=== PATIENT | female | born 1995 | race Caucasian/White ===

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

== ENCOUNTER 2017-08-26 00:32 | Inpatient (IN) | payer MEDICAID ==
--- NOTE | 2017-08-26 08:24 | PCM.LDHP ---
L&D History of Present Illness - General Date of Service: 08/26/17 Admit Problem/Dx: Admission Diagnosis/Problem Admission Diagnosis/Problem - History of Present Illness Introduction:: 22 year old at 39w admitted for induction of labor. 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 Other Musculoskeletal Surgeries/Procedures:: rhinoplasty Social & Family History - Tobacco Use Smoking Status *Q: Current Every Day Smoker Years of Tobacco use: 3 Packs/Tins Daily: 0.5 - Caffeine Use Caffeine Use: Reports: Coffee, Energy Drinks, Soda, Tea Caffeine Use Comment: occassionally drinks these - Alcohol Use Days Per Week of Alcohol Use: 0 - Recreational Drug Use Recreational Drug Use: No H&P Review of Systems - Review of Systems: Review Of Systems: See Below General: Reports: No Symptoms HEENT: Reports: No Symptoms Pulmonary: Reports: No Symptoms Cardiovascular: Reports: No Symptoms Gastrointestinal: Reports: No Symptoms Genitourinary: Reports: No Symptoms Musculoskeletal: Reports: No Symptoms Skin: Reports: No Symptoms Psychiatric: Reports: No Symptoms Neurological: Reports: No Symptoms Hematologic/Lymphatic: Reports: No Symptoms Immunologic: Reports: No Symptoms L&D Exam - Exam Exam: See Below - OB Specific Contraction Intensity: Mild to Moderate Movement: Active Heart Tones: Present Heart Tones per Min: 140 Presentation: Vertex - Musa Score Musa Score Cervix Position: Anterior Musa Score Consistency: Soft Musa Score Effacement: 51-70% Musa Score Dilation: 3-4 cm Musa Score 's Station: -2 Musa Score Total: 9 - Exam General: Alert, Oriented HEENT: PERRLA, Conjunctiva Clear, EACs Clear, EOMI, Hearing Intact, Mucosa Moist & [place], Nares Patent, Normal Nasal Septum, Posterior Pharynx Clear, TMs Clear Neck: Supple, Trachea Midline Lungs: Clear to Auscultation, Normal Respiratory Effort Cardiovascular: Regular Rate, Regular Rhythm GI/Abdominal Exam: Normal Bowel Sounds, Soft, Non-Tender, No Organomegaly, No Distention, No Abnormal Bruit, No Mass, Pelvis Stable Genitourinary: Normal external exam, Normal bimanual exam, Normal speculum exam Back Exam: Normal Inspection, Full Range of Motion Extremities: Normal Inspection, Normal Range of Motion, Non-Tender, No Pedal Edema, Normal Capillary Refill Skin: Warm, Dry, Intact Neurological: Cranial Nerves Intact, Reflexes Equal Bilateral Psychiatric: Alert, Normal Affect, Normal Mood Problem List Initiated/Reviewed/Updated: Yes Assessment/Plan Comment:: Term labor. Pitocin. Regular diet. AROM when possible.
[2017-08-26] MEDS ORDERED: Sodium Chloride 0.9% 10 ML Syringe FLUSH PRN (08:26)
[2017-08-26] MEDS ORDERED: Ampicillin 2 GM in Sodium Chloride 0.9% 100 ML IV ONE (08:28)
[2017-08-26] MEDS ORDERED: Lactated Ringers 1,000 ML IV SCH (08:30)
[2017-08-26] MEDS: Lactated Ringers 1,000 ML IV SCH ×4 (08:46→16:42)
[2017-08-26] MEDS ORDERED: Oxytocin/Lactated Ringers 10 UNIT/1,000 ML BAG IV SCH ×2 (09:00)
[2017-08-26] MEDS ORDERED: Pneumococcal Polyvalent-23 Vaccine 0.5 ML SDV IM ONE (09:16)
[2017-08-26] MEDS ORDERED: Ondansetron 4 MG/2 ML SDV IVPUSH PRN (12:25)
[2017-08-26] MEDS ORDERED: ePHEDrine 50 MG/ML SDV IVPUSH PRN (12:25)
--- NOTE | 2017-08-26 12:29 | PCM.PREANE ---
Preanesthetic Assessment - Anesthesia/Transfusion/Family Hx Anesthesia History: Prior Anesthesia Without Reaction Family History of Anesthesia Reaction: Yes (succhylcholine reaction per family member) Transfusion History: No Prior Transfusion(s) Other Type of Transfusion Reaction: family history of reaction with succinocholine Intubation History: Unknown - Review of Systems General: No Symptoms Pulmonary: No Symptoms (smoker: 1/2 pack per day times 3 years) Cardiovascular: No Symptoms Gastrointestinal: No Symptoms, Constipation Neurological: No Symptoms Other: Reports: None - Physical Assessment NPO Status Date: 08/26/17 NPO Status Time: 10:00 Pulse: 83 O2 Sat by Pulse Oximetry: 100 Respiratory Rate: 20 Blood Pressure: 118/63 Temperature: 36.3 C Vital Signs: Last Vital Signs Temp 36.3 C 08/26/17 08:28 Pulse 83 08/26/17 08:28 Resp 20 08/26/17 08:28 BP 118/63 08/26/17 08:28 Pulse Ox 100 08/26/17 08:28 Height: 1.63 m Weight: 108.862 kg ASA Class: 2 Mental Status: Alert & Oriented x3 Airway Class: Mallampati = 2 Dentition: Reports: Normal Dentition, Caries Thyro-Mental Finger Breadths: 3 Mouth Opening Finger Breadths: 3 ROM/Head Extension: Full Lungs: Clear to Auscultation, Normal Respiratory Effort Cardiovascular: Regular Rate, Regular Rhythm, No Murmurs - Lab Values: Laboratory Last Values WBC 9.17 K/mm3 (3.98-10.04) 08/26/17 10:37 RBC 3.85 M/mm3 (3.98-5.22) L 08/26/17 10:37 Hgb 11.5 gm/L (11.2-15.7) 08/26/17 10:37 Hct 35.0 % (34.1-44.9) 08/26/17 10:37 MCV 90.9 fl (79.4-94.8) 08/26/17 10:37 MCH 29.9 pg (25.6-32.2) 08/26/17 10:37 MCHC 32.9 g/dl (32.2-35.5) 08/26/17 10:37 RDW Std Deviation 46.6 fL (36.4-46.3) H 08/26/17 10:37 Plt Count 201 K/mm3 (182-369) 08/26/17 10:37 MPV 10.2 fl (9.4-12.3) 08/26/17 10:37 Neut % (Auto) 70.3 % (34.0-71.1) 08/26/17 10:37 Lymph % (Auto) 21.7 % (19.3-51.7) 08/26/17 10:37 [place] % (Auto) 5.9 % (4.7-12.5) 08/26/17 10:37 Eos % (Auto) 0.8 (0.7-5.8) 08/26/17 10:37 Baso % (Auto) 0.1 % (0.1-1.2) 08/26/17 10:37 Neut # (Auto) 6.45 K/mm3 (1.56-6.13) H 08/26/17 10:37 Lymph # (Auto) 1.99 K/mm3 (1.18-3.74) 08/26/17 10:37 [place] # (Auto) 0.54 K/mm3 (0.24-0.36) H 08/26/17 10:37 Eos # (Auto) 0.07 K/mm3 (0.04-0.36) 08/26/17 10:37 Baso # (Auto) 0.01 K/mm3 (0.01-0.08) 08/26/17 10:37 Manual Slide Review Abnormal smear 08/26/17 10:37 Above labs reviewed and noted. 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 Other Musculoskeletal Surgeries/Procedures:: rhinoplasty - SUBSTANCE USE Smoking Status *Q: Current Every Day Smoker Tobacco Use Within Last Twelve Months: Cigarettes Days Per Week of Alcohol Use: 0 Recreational Drug Use History: No - HOME MEDS Home Medications: Home Meds PNV95/Ferrous Fumarate/FA [ Tablet] 1 each PO DAILY 08/06/17 [History] - CURRENT (IN HOUSE) MEDS Current Meds: Current Medications Ephedrine Sulfate (Ephedrine Sulfate) 5 mg IVPUSH ASDIRECTED PRN PRN Reason: Hypotension Fentanyl (Sublimaze) 100 mcg EPIDUR Q3H PRN PRN Reason: Pain Fentanyl/Bupivacaine HCl (Fentanyl/Bupivacaine/Ns 2 Mcg-0.125% 100 Ml) 100 ml EPIDUR ASDIRECTED KENDALL Ampicillin Sodium 1 gm/ Sodium (Chloride) 100 mls @ 200 mls/hr IV Q4H KENDALL Lactated Ringer's (Ringers, Lactated) 1,000 mls @ 100 mls/hr IV ASDIRECTED KENDALL Last Admin: 08/26/17 08:46 Dose: 100 mls/hr Oxytocin/Lactated Ringer's (Pitocin In Lr 10 Units/1,000 Ml) 10 unit in 1,000 mls @ 12 mls/hr IV TITRATE KENDALL; 2 MUNITS/MIN PRN Reason: Protocol Last Titration: 08/26/17 11:16 Dose: 6 munits/min, 36 mls/hr Oxytocin/Lactated Ringer's (Pitocin In Lr 10 Units/1,000 Ml) 10 unit in 1,000 mls @ 500 mls/hr IV ASDIRECTED K[place]ALL PRN Reason: Protocol Ondansetron HCl (Zofran) 4 mg IVPUSH ONETIME PRN PRN Reason: Nausea/Vomiting Sodium Chloride (Saline Flush) 10 ml FLUSH ASDIRECTED PRN PRN Reason: Keep Vein Open Discontinued Medications Ampicillin Sodium 2 gm/ Sodium (Chloride) 100 mls @ 200 mls/hr IV ONETIME ONE Stop: 08/26/17 08:57 Last Admin: 08/26/17 08:42 Dose: 200 mls/hr Lactated Ringer's (Ringers, Lactated) 1,000 mls @ 100 mls/hr IV ASDIRECTED KENDALL Pneumococcal Polyvalent Vaccine (Pneumovax 23) 0.5 ml IM .ONCE ONE Stop: 08/26/17 09:17
[2017-08-26] MEDS: fentaNYL 100 MCG/2 ML SDV EPIDUR PRN ×2 (12:44→20:52)
[2017-08-26] MEDS: Bupivacaine/fentaNYL/NS 100 ML Bag EPIDUR SCH ×2 (12:44→20:37)
[2017-08-26] MEDS: Ampicillin 1 GM in Sodium Chloride 0.9% 100 ML IV SCH ×3 (13:30→20:20)
[2017-08-26] MEDS ORDERED: Acetaminophen 325 MG Tab PO PRN (20:06)
[2017-08-26] MEDS ORDERED: Bupivacaine 0.25% 10 ML SDV ONE (22:22)
--- NOTE | 2017-08-27 00:56 | PCM.PNLD ---
Labor Progress Note - VS & Meds Vital Signs: Last Vital Signs Temp 36.3 C 08/26/17 12:44 Pulse 83 08/26/17 12:44 Resp 20 08/26/17 12:44 BP 118/63 08/26/17 12:44 Pulse Ox 100 08/26/17 12:44 Active Medications: Current Medications Acetaminophen (Tylenol) 650 mg PO Q6H PRN PRN Reason: Pain Last Admin: 08/26/17 20:12 Dose: 650 mg Ephedrine Sulfate (Ephedrine Sulfate) 5 mg IVPUSH ASDIRECTED PRN PRN Reason: Hypotension Fentanyl (Sublimaze) 100 mcg EPIDUR Q3H PRN PRN Reason: Pain Last Admin: 08/26/17 20:52 Dose: 100 mcg Fentanyl/Bupivacaine HCl (Fentanyl/Bupivacaine/Ns 2 Mcg-0.125% 100 Ml) 100 ml EPIDUR ASDIRECTED KENDALL Last Admin: 08/26/17 20:37 Dose: 100 ml Ampicillin Sodium 1 gm/ Sodium (Chloride) 100 mls @ 200 mls/hr IV Q4H KENDALL Last Admin: 08/26/17 20:20 Dose: 200 mls/hr Lactated Ringer's (Ringers, Lactated) 1,000 mls @ 100 mls/hr IV ASDIRECTED KENDALL Last Admin: 08/26/17 16:42 Dose: 100 mls/hr Oxytocin/Lactated Ringer's (Pitocin In Lr 10 Units/1,000 Ml) 10 unit in 1,000 mls @ 12 mls/hr IV TITRATE KENDALL; 2 MUNITS/MIN PRN Reason: Protocol Last Titration: 08/26/17 21:26 Dose: 6 munits/min, 36 mls/hr Oxytocin/Lactated Ringer's (Pitocin In Lr 10 Units/1,000 Ml) 10 unit in 1,000 mls @ 500 mls/hr IV ASDIRECTED KENDALL PRN Reason: Protocol Ondansetron HCl (Zofran) 4 mg IVPUSH ONETIME PRN PRN Reason: Nausea/Vomiting Last Admin: 08/26/17 21:23 Dose: 4 mg Sodium Chloride (Saline Flush) 10 ml FLUSH ASDIRECTED PRN PRN Reason: Keep Vein Open Discontinued Medications Ampicillin Sodium 2 gm/ Sodium (Chloride) 100 mls @ 200 mls/hr IV ONETIME ONE Stop: 08/26/17 08:57 Last Admin: 08/26/17 08:42 Dose: 200 mls/hr Lactated Ringer's (Ringers, Lactated) 1,000 mls @ 100 mls/hr IV ASDIRECTED KENDALL Pneumococcal Polyvalent Vaccine (Pneumovax 23) 0.5 ml IM .ONCE ONE Stop: 08/26/17 09:17 - Uterine Contractions Uterine Monitoring Mode: External Daisy Contraction Intensity: Mild to Moderate - Monitoring Monitor Mode: External Ultrasound Heart Rate (FHR) Baseline: 140 Heart Rate (FHR) Variability: Moderate (6-25 bmp) Accelerations: Present, 15x15 Decelerations: None Strip Review: Category I - Vaginal Exam Dilation (cm): 4 Effacement (Percent): 90 Station: 0 Cervical Position: Midposition - Labor Progress (Free Text) Labor Progress: Good progress. AROM clear fluid.
[2017-08-27] MEDS ORDERED: Lanolin 100% Cream 7 GM Tube TOP PRN (02:24)
[2017-08-27] MEDS ORDERED: Benzocaine/Menthol 20%-0.5% Spray 56 GM Canister TOP PRN (02:24)
[2017-08-27] MEDS ORDERED: Docusate Sodium 100 MG Cap PO PRN (02:24)
[2017-08-27] MEDS: Lactated Ringers 1,000 ML IV SCH (03:56)
[2017-08-27] MEDS ORDERED: Witch Hazel Medicated Pads 100/Jar TOP PRN (03:58)
[2017-08-27] MEDS: Ampicillin 1 GM in Sodium Chloride 0.9% 100 ML IV SCH (08:16)
[2017-08-27] MEDS: Ibuprofen 600 MG Tab PO PRN ×3 (10:26→23:31)
[2017-08-27] MEDS ORDERED: Pneumococcal Polyvalent-23 Vaccine 0.5 ML SDV IM ONE (11:31)
[2017-08-27] MEDS ORDERED: Acetaminophen 325 MG Tab PO PRN (13:58)
--- NOTE | 2017-08-27 17:27 | PCM48HPAN ---
Post Anesthesia Note - EVALUATION WITHIN 48HRS OF ANESTHETIC Vital Signs in Normal Range: Yes Patient Participated in Evaluation: Yes Respiratory Function Stable: Yes Airway Patent: Yes Cardiovascular Function Stable: Yes Hydration Status Stable: Yes Pain Control Satisfactory: Yes Nausea and Vomiting Control Satisfactory: Yes Mental Status Recovered: Yes
[2017-08-28] MEDS: Ibuprofen 600 MG Tab PO PRN (07:36)
[2017-08-28 09:50] VITALS: BP 125/79
--- NOTE | 2017-08-28 09:53 | PCM.DCSUM1 ---
Discharge Summary - Hospital Course Brief History: Admitted for induction. Uncomplicated labor, delivery and course. - Discharge Data Discharge Date: 08/28/17 Discharge Disposition: Home, Self-Care 01 Condition: Good - Patient Instructions Diet: Usual Diet as Tolerated Activity: No Strenuous Activities Activity, Other: pelvic rest Driving: May Drive Today Notify Provider of: Fever, Increased Pain, Swelling and Redness, Drainage, Nausea and/or Vomiting - Discharge Plan Home Medications: Home Meds PNV95/Ferrous Fumarate/FA [ Tablet] 1 each PO DAILY 08/06/17 [History] Ibuprofen [IJD: Ibuprofen] 600 mg PO Q6H PRN tablet 08/28/17 [Rx] Patient Handouts: Home Care Instructions for Mom Referrals: Ethel Ahmadi MD [Primary Care Provider] - - Discharge Summary/Plan Comment DC Time >30 min.: No - General Info Date of Service: 08/28/17 Functional Status: Reports: Pain Controlled - Review of Systems General: Reports: No Symptoms HEENT: Reports: No Symptoms Pulmonary: Reports: No Symptoms Cardiovascular: Reports: No Symptoms Gastrointestinal: Reports: No Symptoms Genitourinary: Reports: No Symptoms Musculoskeletal: Reports: No Symptoms Skin: Reports: No Symptoms Neurological: Reports: No Symptoms Psychiatric: Reports: No Symptoms - Patient Data Vitals - Most Recent: Last Vital Signs Temp 36.7 C 08/28/17 04:17 Pulse 81 08/28/17 09:46 Resp 14 08/28/17 09:46 BP 125/79 08/28/17 09:46 Pulse Ox 99 08/28/17 09:46 Weight - Most Recent: 108.862 kg Med Orders - Current: Current Medications Acetaminophen (Tylenol) 650 mg PO Q6H PRN PRN Reason: Pain Last Admin: 08/27/17 14:07 Dose: 650 mg Benzocaine/Menthol (Dermoplast Pain Relief [place]) 0 gm TOP ASDIRECTED PRN PRN Reason: Perineal Comfort Measure Last Admin: 08/27/17 02:40 Dose: 1 can Docusate Sodium (Colace) 100 mg PO BID PRN PRN Reason: Constipation Emollient Ointment (Lansinoh Hpa) 0 gm TOP ASDIRECTED PRN PRN Reason: Sore Nipples Last Admin: 08/27/17 02:54 Dose: 1 tube Ibuprofen (Motrin) 600 mg PO Q6H PRN PRN Reason: Mild pain or fever Last Admin: 08/28/17 07:36 Dose: 600 mg [place] (Tucks) 1 pad TOP ASDIRECTED PRN PRN Reason: Perineal Comfort Measure Discontinued Medications Acetaminophen (Tylenol) 650 mg PO Q6H PRN PRN Reason: Pain Last Admin: 08/26/17 20:12 Dose: 650 mg Ephedrine Sulfate (Ephedrine Sulfate) 5 mg IVPUSH ASDIRECTED PRN PRN Reason: Hypotension Fentanyl (Sublimaze) 100 mcg EPIDUR Q3H PRN PRN Reason: Pain Last Admin: 08/26/17 20:52 Dose: 100 mcg Fentanyl/Bupivacaine HCl (Fentanyl/Bupivacaine/Ns 2 Mcg-0.125% 100 Ml) 100 ml EPIDUR ASDIRECTED KENDALL Last Admin: 08/26/17 20:37 Dose: 100 ml Ampicillin Sodium 2 gm/ Sodium (Chloride) 100 mls @ 200 mls/hr IV ONETIME ONE Stop: 08/26/17 08:57 Last Admin: 08/26/17 08:42 Dose: 200 mls/hr Ampicillin Sodium 1 gm/ Sodium (Chloride) 100 mls @ 200 mls/hr IV Q4H KENDALL Last Admin: 08/27/17 08:16 Dose: Not Given Lactated Ringer's (Ringers, Lactated) 1,000 mls @ 100 mls/hr IV ASDIRECTED KENDALL Last Admin: 08/27/17 03:56 Dose: 100 mls/hr Lactated Ringer's (Ringers, Lactated) 1,000 mls @ 100 mls/hr IV ASDIRECTED KENDALL Oxytocin/Lactated Ringer's (Pitocin In Lr 10 Units/1,000 Ml) 10 unit in 1,000 mls @ 12 mls/hr IV TITRATE KENDALL; 2 MUNITS/MIN PRN Reason: Protocol Last Titration: 08/26/17 21:26 Dose: 6 munits/min, 36 mls/hr Oxytocin/Lactated Ringer's (Pitocin In Lr 10 Units/1,000 Ml) 10 unit in 1,000 mls @ 500 mls/hr IV ASDIRECTED KENDALL PRN Reason: Protocol Last Admin: 08/27/17 01:15 Dose: 500 mls/hr Ondansetron HCl (Zofran) 4 mg IVPUSH ONETIME PRN PRN Reason: Nausea/Vomiting Last Admin: 08/26/17 21:23 Dose: 4 mg Pneumococcal Polyvalent Vaccine (Pneumovax 23) 0.5 ml IM .ONCE ONE Stop: 08/26/17 09:17 Last Admin: 08/27/17 12:05 Dose: Not Given Pneumococcal Polyvalent Vaccine (Pneumovax 23) 0.5 ml IM .ONCE ONE Stop: 08/27/17 11:32 Last Admin: 08/27/17 11:47 Dose: 0.5 ml Sodium Chloride (Saline Flush) 10 ml FLUSH ASDIRECTED PRN PRN Reason: Keep Vein Open - Exam General: Reports: Alert, Oriented HEENT: Reports: Pupils Equal, Pupils Reactive, EOMI, Mucous Membr. Moist/[place] Neck: Reports: Supple Lungs: Reports: Clear to Auscultation, Normal Respiratory Effort Cardiovascular: Reports: Regular Rate, Regular Rhythm GI/Abdominal Exam: Normal Bowel Sounds, Soft, Non-Tender, No Organomegaly, No Distention, No Abnormal Bruit, No Mass, Pelvis Stable Back Exam: Reports: Normal Inspection, Full Range of Motion Extremities: Normal Inspection, Normal Range of Motion, Non-Tender, No Pedal Edema, Normal Capillary Refill Skin: Reports: Warm, Dry, Intact Wound/Incisions: Reports: Healing Well Neurological: Reports: No New Focal Deficit Psy/Mental Status: Reports: Alert, Normal Affect, Normal Mood *Q Meaningful Use (DIS) - VTE *Q VTE Criteria *Q: - Stroke *Q Stroke Criteria *Q: - AMI *Q AMI Criteria *Q:
== END 2017-08-28 10:15 | disposition home or self-care (01) | DRG 775 ==
LOC: JD.OB 00:32 → OBSVTOIN 08-27 00:32
PROVIDERS: ADMIT Obstetrics & Gynecology; ATTEND Obstetrics & Gynecology
PROC: 10E0XZZ Delivery of Products of Conception, External Approach (ICD-10-PCS; principal; 2017-08-27)
PROC: 3E033VJ Introduction of Other Hormone into Peripheral Vein, Percutaneous Approach (ICD-10-PCS; 2017-08-27)
PROC: 10907ZC Drainage of Amniotic Fluid, Therapeutic from Products of Conception, Via Natural or Artificial Opening (ICD-10-PCS; 2017-08-27)
PROC: 00HU33Z Insertion of Infusion Device into Spinal Canal, Percutaneous Approach (ICD-10-PCS; 2017-08-27)
PROC: 3E0R3BZ Introduction of Anesthetic Agent into Spinal Canal, Percutaneous Approach (ICD-10-PCS; 2017-08-27)
PROC: 3E0234Z Introduction of Serum, Toxoid and Vaccine into Muscle, Percutaneous Approach (ICD-10-PCS; 2017-08-27)
DX: O99.334 Smoking (tobacco) complicating childbirth (principal); O70.0 First degree perineal laceration during delivery; O69.2XX0 Labor and delivery complicated by other cord entanglement, with compression, not applicable or unspecified; Z3A.39 39 weeks gestation of pregnancy; Z37.0 Single live birth; Z23 Encounter for immunization; Z88.8 Allergy status to other drugs, medicaments and biological substances
CPT/HCPCS: 36415; 59300; 59409; 85025; 90732; A9270-GY; G0009; J0290; J2405; J2590; J3010; J7030; J7120

== ENCOUNTER 2017-09-07 19:56 | Emergency (ER) | payer MEDICAID ==
[2017-09-07 20:05] VITALS: BP 136/100
--- NOTE | 2017-09-07 21:29 | EDM.PDOC ---
ED HPI GENERAL MEDICAL PROBLEM - General Chief Complaint: Respiratory Problem Stated Complaint: SOB/HAS THE FLU Time Seen by Provider: 09/07/17 20:30 Source of Information: Reports: Patient, Significant Other (Fiance) History Limitations: Reports: No Limitations - History of Present Illness INITIAL COMMENTS - FREE TEXT/NARRATIVE: The patient states that she was seen at the [facility] clinic this past 09/03/2017, where she was diagnosed with influenza. She was started on Tamiflu, which she finished today. She had a fever up to 104.3 on 09/03/2016 and 09/04/2016, for which she took ibuprofen. She now presents with a sore throat and hoarse voice for the past 2 days. Her sore throat is made worse with eating, and is disallowing her to sleep well. She has also been feeling short of breath due to her sore throat, made worse if she coughs, since yesterday. Her cough is productive of scant yellow phlegm. She has been taking ezes-gaw-adlfjbi Mucinex, DayQuil, throat lozenges, and Chloraseptic spray, with no relief. It is noted that the patient's oxygen saturation is 100% on room air. The patient also reports that she had a vaginal delivery at 39 weeks gestation on 08/27/2016. She has had vaginal bleeding since, but states that she has increased bleeding today. The patient's PCP is Dr. Chacon, whom the patient has not contacted. 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: Reports: Endometriosis, Endocrine/Metabolic History: Reports: Obesity/BMI 30+ Dermatologic History: Reports: Other (See Below) (Neurofibromatosis) - Infectious Disease History Infectious Disease History: Reports: Influenza - Past Surgical History HEENT Surgical History: Reports: Adenoidectomy, Myringotomy w Tube(s) (bilateral ), Naso-Sinus Surgery (Rhinoplasty), Tonsillectomy Female Surgical History: Reports: D&C (x 1), Other (See Below) (Exploratory laparoscopy for endometriosis x 1) 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 Other Musculoskeletal Surgeries/Procedures:: rhinoplasty Social & Family History - Tobacco Use Smoking Status *Q: Current Every Day Smoker Years of Tobacco use: 3 Packs/Tins Daily: 0.5 - Caffeine Use Caffeine Use: Reports: None Caffeine Use Comment: occassionally drinks these - Alcohol Use Alcohol Use History: Yes Days Per Week of Alcohol Use: 0 Alcohol Use Frequency: Rarely - Recreational Drug Use Recreational Drug Use: No - Living Situation & Occupation Living situation: Reports: Single, with Significant Other (Fiance), with Family ([employer]) Occupation: Unemployed ED ROS GENERAL - Review of Systems Review Of Systems: ROS reveals no pertinent complaints other than HPI. ED EXAM, GENERAL - Physical Exam Exam: See Below Exam Limited By: No Limitations General Appearance: Alert, WD/WN, Mild Distress (Appears miserable. Whispers due to sore throat. Hoarse voice when speaks) Eye Exam: Bilateral Eye: Normal Inspection Ears: Normal External Exam, Normal Canal, Hearing Grossly Normal, Normal TMs Nose: Normal Inspection, Normal Mucosa, No Blood Throat/Mouth: Normal Lips, Normal Teeth, Normal Gums, Normal Oropharynx (2 areas of petechiae on the bilateral soft palate. No uvular swelling. Tonsils are absent.), No Airway Compromise Head: Atraumatic, Normocephalic Neck: Normal Inspection, Supple, Non-Tender, Full Range of Motion. No: Lymphadenopathy (L), Lymphadenopathy (R) Respiratory/Chest: No Respiratory Distress, Lungs Clear, Normal Breath Sounds, No Accessory Muscle Use Cardiovascular: Normal Peripheral Pulses, Regular Rate, Rhythm, No Gallop, No JVD, No Murmur, No Rub Peripheral Pulses: 4+: Radial (L), Radial (R) GI/Abdominal: Normal Bowel Sounds, Soft, Non-Tender, No Organomegaly, No Distention, No Abnormal Bruit, No Mass, Other (Obese) (Female) Exam: Deferred Rectal (Female) Exam: Deferred Back Exam: Normal Inspection, Full Range of Motion, NT Extremities: Normal Inspection, Normal Range of Motion, No Pedal Edema, Normal Capillary Refill Neurological: Alert, Oriented, Normal Cognition, No Motor/Sensory Deficits Psychiatric: Normal Affect Skin Exam: Warm, Dry, Intact, Normal Color, No Rash Course - Vital Signs Last Recorded V/S: Last Vital Signs Temp 37.0 C 09/07/17 20:01 Pulse 70 09/07/17 20:01 Resp 20 09/07/17 20:01 BP 136/100 H 09/07/17 20:01 Pulse Ox 97 09/07/17 20:01 - Orders/Labs/Meds Orders: Active Orders 24 hr Category Date Time Status Chest 2V [CR] Stat Exams 09/07/17 20:42 Taken CULTURE STREP A CONFIRMATION [RM] Stat Lab 09/07/17 20:17 Results STREP SCRN A RAPID W CULT CONF [RM] Stat Lab 09/07/17 20:17 Results Labs: Laboratory Tests 09/07/17 09/07/17 Range/Units 20:55 20:55 WBC 13.78 H (3.98-10.04) K/mm3 RBC 4.42 (3.98-5.22) M/mm3 Hgb 13.0 (11.2-15.7) gm/L Hct 39.5 (34.1-44.9) % MCV 89.4 (79.4-94.8) fl MCH 29.4 (25.6-32.2) pg MCHC 32.9 (32.2-35.5) g/dl RDW Std Deviation 43.3 (36.4-46.3) fL Plt Count 303 (182-369) K/mm3 MPV 9.9 (9.4-12.3) fl Neutrophils % (Manual) 68 H (40-60) % Band Neutrophils % 0 (0-10) % Lymphocytes % (Manual) 29 (20-40) % Atypical Lymphs % 0 % Monocytes % (Manual) 3 (2-10) % Eosinophils % (Manual) 0 L (0.7-5.8) % Basophils % (Manual) 0 L (0.1-1.2) Platelet Estimate Adequate Plt Morphology Comment Normal RBC Morph Comment Normal Sodium 141 (136-145) mEq/L Potassium 3.7 (3.5-5.1) mEq/L Chloride 106 (98-107) mEq/L Carbon Dioxide 25 (21-32) mEq/L Anion Gap 13.7 (5-15) BUN 6 L (7-18) mg/dL Creatinine 0.6 (0.55-1.02) mg/dL Est Cr Clr Drug Dosing 129.15 mL/min Estimated GFR (MDRD) > 60 (>60) mL/min BUN/Creatinine Ratio 10.0 L (14-18) Glucose 86 (74-106) mg/dL Calcium 8.8 (8.5-10.1) mg/dL Total Bilirubin 0.3 (0.2-1.0) mg/dL AST 16 (15-37) U/L ALT 20 (14-59) U/L Alkaline Phosphatase 91 (46-116) U/L Total Protein 7.2 (6.4-8.2) g/dl Albumin 3.2 L (3.4-5.0) g/dl Globulin 4.0 gm/dL Albumin/Globulin Ratio 0.8 L (1-2) - Re-Assessments/Exams Free Text/Narrative Re-Assessment/Exam: 09/07/17 21:36 Two-view chest radiograph appears to be grossly normal. Cardiac silhouette is within normal limits. No pulmonary vascular congestion. No pleural effusions. No focal infiltrate. No pneumothorax. Brassiere clips noted. Formal read per the Radiologist pending. 09/07/17 22:08 Test results discussed with the patient and her fianc. As above, the patient's influenza is still positive, and likely will be until early September. There is no suggestion of a bacterial infection, however, such as strep throat or pneumonia. As the patient has already discovered, sibj-uhh-dmysuyc cough and cold remedies have no effect on coughs or colds, and I am recommending that she not continue them. She can try warm salt water gargles, continue the Chloraseptic spray, Tylenol, or ibuprofen, but, unfortunately, the patient will simply have to get through this illness. Departure - Departure Time of Disposition: 22:08 Disposition: Home, Self-Care 01 Condition: Fair Clinical Impression: Influenza A - Discharge Information Referrals: Terese Hinojosa MD [Primary Care Provider] - Forms: ED Department Discharge Additional Instructions: You were seen in the emergency room for a sore throat, hoarse voice, and cough, all in the setting of a recent influenza diagnosis. Workup in the ER included blood work, an influenza swab, a rapid strep test, and a chest x-ray. Your influenza swab returned positive for Influenza A. Your rapid strep test was negative. Your chest x-ray was negative. You do not have pneumonia. As you have already discovered, hiny-ova-miyutrj cough and cold remedies have no effect on cough or cold symptoms, and we do not recommend that you continue them. For your sore throat, we recommend continued Chloraseptic spray, warm saltwater gargles, Tylenol, or ibuprofen. Unfortunately, there are no medicines that we can give you to make your symptoms go away. They will have to run their course. We recommend that you notify Dr. Chacon of your ER visit and diagnosis. If any other problems, please do not hesitate to return to the ER. - My Orders Last 24 Hours: My Active Orders 09/07/17 20:17 CULTURE STREP A CONFIRMATION [RM] Stat STREP SCRN A RAPID W CULT CONF [RM] Stat 09/07/17 20:42 Chest 2V [CR] Stat - Assessment/Plan Last 24 Hours: My Active Orders 09/07/17 20:17 CULTURE STREP A CONFIRMATION [RM] Stat STREP SCRN A RAPID W CULT CONF [RM] Stat 09/07/17 20:42 Chest 2V [CR] Stat
--- NOTE | 2017-09-08 08:28 | CR ---
Chest: Two views of the chest were obtained. Comparison: Prior chest x-ray of 12/24/16. Heart size and mediastinum are normal. Lungs are clear. Mild scoliosis is present within the spine. No acute bony abnormality is seen. Impression: 1. Incidental finding. Nothing acute is identified on two-view chest x-ray. Diagnostic code #2
== END 2017-09-07 22:18 | disposition home or self-care (01) ==
LOC: JD.ED 19:56
DX: J10.1 Influenza due to other identified influenza virus with other respiratory manifestations (principal); F17.210 Nicotine dependence, cigarettes, uncomplicated; Z88.8 Allergy status to other drugs, medicaments and biological substances
CPT/HCPCS: 36415; 71046; 71046-26; 80053; 85025; 87081; 87430; 87804; 99282; 99285

== ENCOUNTER 2018-02-26 19:09 | Emergency (ER) | payer MEDICAID ==
[2018-02-26 19:25] VITALS: BP 135/81
--- NOTE | 2018-02-26 20:11 | EDM.PDOC ---
ED HPI GENERAL MEDICAL PROBLEM - General Chief Complaint: Abdominal Pain Stated Complaint: PAIN AROUND BACK AND BREAST AREA Time Seen by Provider: 02/26/18 19:29 Source of Information: Reports: Patient, Family () History Limitations: Reports: No Limitations - History of Present Illness INITIAL COMMENTS - FREE TEXT/NARRATIVE: The patient reports that she has been experiencing epigastric and right upper quadrant abdominal pain that radiates up to the center of her chest, then laterally across her entire chest to the bilateral ribs, as well as in her back , extending up the middle of her back to her neck, for more than a month. Her symptoms wax and wane, and are generally getting worse. She states that they are worse if she drinks soda, or eats fast food. He reports associated shortness of breath, nausea, and lightheadedness. No emesis. She has had a slight cough. She has chronic constipation. No recent diarrhea. No urinary symptoms. No recent fever. The patient saw her PCP, Dr. Chacon, on 01/26/2018. A CBC, fecal H. pylori, and ultrasound of the right upper quadrant were ordered. The CBC was normal, and the H. pylori test returned negative. The ultrasound was performed in late January and revealed hepatic steatosis, but was otherwise unremarkable. A HIDA scan has been scheduled for the 2 days from now, 02/28/2018. The patient now presents to the ED because of continued symptoms. She has not followed up with Dr. Chacon, stating that she was instructed to follow-up after her HIDA scan. 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, Neurological History: Reports: Other (See Below) (Neurofibromatosis, type unclear) Endocrine/Metabolic History: Reports: Obesity/BMI 30+ - Infectious Disease History Infectious Disease History: Reports: Influenza - Past Surgical History HEENT Surgical History: Reports: Adenoidectomy, Myringotomy w Tube(s), Naso- Sinus Surgery (Rhinoplasty), Tonsillectomy Female Surgical History: Reports: D&C (x 1), Other (See Below) (Exploratory laparoscopy for endometriosis x 1) Social & Family History - Tobacco Use Smoking Status *Q: Current Every Day Smoker Years of Tobacco use: 5 Packs/Tins Daily: 0.5 Packs/Tins Daily Comment: Down from 1 ppd - Caffeine Use Caffeine Use: Reports: Coffee Caffeine Use Comment: occassionally drinks these - Alcohol Use Alcohol Use History: Yes Alcohol Use Frequency: Socially - Recreational Drug Use Recreational Drug Use: No - Living Situation & Occupation Living situation: Reports: Single, with Significant Other (Fiance), with Family (1 child) Occupation: Unemployed ED ROS GENERAL - Review of Systems Review Of Systems: ROS reveals no pertinent complaints other than HPI. ED EXAM, GENERAL - Physical Exam Exam: See Below Exam Limited By: No Limitations General Appearance: Alert, WD/WN, No Apparent Distress Eye Exam: Bilateral Eye: Normal Inspection Ears: Normal External Exam, Hearing Grossly Normal Nose: Normal Inspection, No Blood Throat/Mouth: Normal Inspection, Normal Lips, Normal Voice, No Airway Compromise Head: Atraumatic, Normocephalic Neck: Normal Inspection, Full Range of Motion Respiratory/Chest: No Respiratory Distress, Lungs Clear, Normal Breath Sounds, No Accessory Muscle Use Cardiovascular: Normal Peripheral Pulses, Regular Rate, Rhythm, No Gallop, No JVD, No Murmur, No Rub Peripheral Pulses: 4+: Radial (L), Radial (R) GI/Abdominal: Normal Bowel Sounds, Soft, No Organomegaly, No Distention, No Abnormal Bruit, No Mass, Tender (Primarily epigastric, but also the right upper quadrant. Essentially nontender elsewhere. Melton's sign present.), Other (Obese ) (Female) Exam: Deferred Rectal (Female) Exam: Deferred Back Exam: Normal Inspection, Full Range of Motion, Other (The patient indicates that the primary site of pain radiation is inferior to her right scapula). No: CVA Tenderness (L), CVA Tenderness (R) Extremities: Normal Inspection, Normal Range of Motion, No Pedal Edema, Normal Capillary Refill Neurological: Alert, Oriented, Normal Cognition, No Motor/Sensory Deficits Psychiatric: Normal Affect Skin Exam: Warm, Dry, Intact, Normal Color, No Rash Course - Vital Signs Last Recorded V/S: Last Vital Signs Temp 36.6 C 02/26/18 19:21 Pulse 88 02/26/18 19:21 Resp 16 02/26/18 19:21 BP 135/81 02/26/18 19:21 Pulse Ox 100 02/26/18 19:21 - Re-Assessments/Exams Free Text/Narrative Re-Assessment/Exam: 02/26/18 20:04 Clinically, the patient is suffering from gallbladder disease, as she reports that her symptoms are worse if she eats fast food, and she has Melton's sign on physical examination, with pain radiating through to the right scapular area. The ultrasound of her right upper quadrant performed in late January was reportedly negative, however, this can be the case if she has a common bile duct stone that is ball-valving, as the ultrasound of the right upper quadrant visualizes the upper two thirds of the biliary tree, but not the lower one third. The patient is scheduled for a HIDA scan this coming Monday, 2017. If the HIDA scan is negative, I would recommend that she go for a MRCP. The patient was concerned that she could have a pulmonary embolus, however, she does not present with the expected symptoms of a PE, namely, tachycardia and tachypnea. She presents primarily with chest and back pain, and while PEs can certainly cause pleuritic pain if a PE causes a pulmonary infarct (rare), which in turn causes pleurisy. In that case, however, the pain can only be where there is pleura, and there is no pleura in the neck or midline of the back, therefore her pain is not due to a PE. From an emergency department standpoint, I do not see any workup that would be meaningful to the patient today. Departure - Departure Time of Disposition: 20:12 Disposition: Home, Self-Care 01 Condition: Good Clinical Impression: Right upper quadrant abdominal pain of unknown etiology, Chest pain of uncertain etiology - Discharge Information *PRESCRIPTION DRUG MONITORING PROGRAM REVIEWED*: Not Applicable *COPY OF PRESCRIPTION DRUG MONITORING REPORT IN PATIENT DOREEN: Not Applicable Instructions: Abdominal Pain, Adult, [id number], Nonspecific Chest Pain, Easy -to-Read Referrals: Terese Hinojosa MD [Primary Care Provider] - Forms: ED Department Discharge Additional Instructions: You were seen in the emergency room for more than one month of right upper abdominal pain radiating into your chest and back. As discussed, the HIDA scan scheduled for 02/28/2018 is very important. If this test returns negative, we recommend that you go for a MRCP. As discussed, we did not find any tests from the ER that would be useful to you at this time. Follow-up with your PCP, Dr. Chacon, as scheduled. If any other problems, please do not hesitate to return to the ER.
== END 2018-02-26 20:22 | disposition home or self-care (01) ==
LOC: JD.ED 19:09
DX: R10.11 Right upper quadrant pain (principal); E66.9 Obesity, unspecified; F17.210 Nicotine dependence, cigarettes, uncomplicated; Z88.8 Allergy status to other drugs, medicaments and biological substances
CPT/HCPCS: 99284